=== PATIENT | male | born 1995 | race Hispanic/Latino ===

== ENCOUNTER 2018-04-19 17:59 | Emergency (ER) | payer OTHER ==
[~2018-04-19] VITALS: Ht 182.9 cm; Wt 89.1 kg
[2018-04-19] MEDS ORDERED: ACETAMINOPHEN 325 MG TAB As Ordered ONE (18:37)
[2018-04-19] MEDS ORDERED: ACETAMINOPHEN 325 MG TAB PO ONE (18:45)
[2018-04-19] MEDS ORDERED: NS 1,000 ML IV ONE (18:45)
[2018-04-19 18:57] LABS: HEMATOCRIT 44.9 % (42.0-52.0); HEMOGLOBIN 15.1 g/dl (13.5-17.5); MEAN CORPUSCULAR HEMOGLOBIN 29.2 pg (27.0-33.0); MEAN CORPUSCULAR HGB CONC 33.6 g/dl (32.0-36.5); MEAN CORPUSCULAR VOLUME 86.8 fl (80.0-96.0); PLATELET COUNT, AUTOMATED 196 10^3/uL (150-450); RED BLOOD COUNT 5.17 10^6/uL (4.30-6.10); WHITE BLOOD COUNT 10.4 10^3/uL (4.0-10.0)
[2018-04-19 19:15] LABS: BLOOD UREA NITROGEN 19 MG/DL (7-18); CALCIUM LEVEL 8.4 MG/DL (8.5-10.1); CARBON DIOXIDE LEVEL 27 MEQ/L (21-32); CHLORIDE LEVEL 105 MEQ/L (98-107); CREATININE FOR GFR 1.18 MG/DL (0.70-1.30); GLOMERULAR FILTRATION RATE > 60.0 (>60); GLUCOSE, FASTING 109 MG/DL (70-100); POTASSIUM SERUM 3.7 MEQ/L (3.5-5.1); SODIUM LEVEL 139 MEQ/L (136-145)
[2018-04-19 19:30] LABS: INFLUENZA A AMPLIFICATION NEGATIVE (NEGATIVE); INFLUENZA B AMPLIFICATION NEGATIVE (NEGATIVE)
--- NOTE | 2018-04-19 19:37 | REP ---
AP PORTABLE CHEST: 04/19/2018. Clinical history: Cough and fever. Comparison: No prior study. Findings: This AP portable chest shows the lungs well inflated. The left CP angle is excluded. The right CP angle is sharply defined. There is no dense consolidation with air bronchograms. Some streaky densities in the bases may reflect some bronchitis or reactive airway disease. The heart, mediastinal and hilar contours, aorta and airway intact. Impression: 1. Streaky densities that may reflect some underlying bronchitis, but no dense consolidation, pleural effusion, cardiomegaly, edema or other acute finding. Electronically Signed by Ricki Le MD 04/19/2018 09:32 P
--- NOTE | 2018-04-19 19:37 | REPVR ---
EXAM: US NON-VASCULAR JOINT OR OTHER EXTREMITY STRUCTURE LTD EXAM DATE/TIME: 04/19/2018 7:25 PM CLINICAL HISTORY: 23 years old, male; Pain; Shoulder; Left; Additional info: Left shoulder pain, swelling at vaccination site(r/o abscess TECHNIQUE: US NON-VASCULAR JOINT OR OTHER EXTREMITY STRUCTURE LTD COMPARISON: No relevant prior studies available. FINDINGS: The patient had a vaccination at the left shoulder. In the region of the vaccination there is massive subcutaneous edema and thickening of the skin. This appearance is consistent with inflammation or infection. However, no focal abscess could be identified. IMPRESSION: Severe swelling at the vaccination site, a result of diffuse inflammation or infection. However, no abscess seen. Electronically signed by: Cody Kidd On 04/19/2018 19:37:18 PM
[2018-04-19] MEDS ORDERED: NS 1,000 ML IV SCH (19:45)
[2018-04-19] MEDS ORDERED: IBUPROFEN 600 MG TAB PO ONE (19:45)
[2018-04-19] MEDS ORDERED: IBUPROFEN 600 MG TAB As Ordered ONE (19:46)
[2018-04-19] MEDS ORDERED: CEFD1CAP8 PO (20:43)
[2018-04-19] MEDS ORDERED: ALBU17IN2 INH (20:43)
[2018-04-19] MEDS ORDERED: PIPERACILLIN/TAZOBACTAM SOD 3.375 GM in D5W MINI-BAG PLUS 50 ML IV ONE (20:45)
[2018-04-19 22:12] VITALS: BP 134/64
== END 2018-04-19 22:13 | disposition home or self-care (01) ==
LOC: EDBD 17:59 → M ED 17:59
DX: J20.9 Acute bronchitis, unspecified (principal); T50.Z95A Adverse effect of other vaccines and biological substances, initial encounter; X58.XXXA Exposure to other specified factors, initial encounter; Y92.89 Other specified places as the place of occurrence of the external cause; Z91.013 Allergy to seafood
CPT/HCPCS: 71045; 76881; 80048; 81001; 83605; 85027; 87502; 96361; 96374; 99284; J2543

== ENCOUNTER → 2019-06-18 | Outpatient (CLI) | payer OTHER ==
[~2019-06-18] MED LIST: CEFD1CAP8 PO; PROV108A INH
[2019-06-18 13:56] LABS: C REACTIVE PROTEIN QUANTITATIV < 0.30 MG/DL (0.00-0.30); RHEUMATOID FACTOR QUANT < 10.0 IU/ML (<15.0)
== END ==
LOC: M PLALAB 11:50
PROVIDERS: ATTEND Physician Assistant
DX: M51.36 Other intervertebral disc degeneration, lumbar region (principal)

== ENCOUNTER → 2019-07-26 | Outpatient (CLI) | payer OTHER ==
--- NOTE | 2019-07-26 18:25 | REPPI ---
Clinical: Sacroiliac pain. Technique: Four views of the bilateral sacroiliac joints. Findings: Bilateral sacroiliac joints are symmetric and age appropriate. No degenerative or inflammatory changes are appreciated. No fracture or subluxation. Impression: Normal sacroiliac joint study. Electronically Signed by Anoop Sargent MD 07/26/2019 06:17 P
== END ==
LOC: M PLAIMG 12:27
PROVIDERS: ATTEND Internal Medicine
DX: M53.3 Sacrococcygeal disorders, not elsewhere classified (principal)

== ENCOUNTER → 2020-03-07 | Outpatient (CLI) | payer OTHER ==
--- NOTE | 2020-03-08 11:02 | REP ---
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 COMPARISON: None. TECHNIQUE: 3T multiplanar MRI imaging of the pelvis without contrast. FINDINGS: Visualized intrapelvic structures including visualized portions of the small and large bowel, prostate/seminal vesicles, and bladder are normal in appearance. No significant adenopathy or pelvic free fluid. No mass lesion identified. Subcutaneous tissues, musculature, and osseous structures/joint spaces are normal. IMPRESSION: Normal noncontrast MRI of the pelvis. <Electronically signed by Anoop Sargent > 03/08/20 [id number]
== END ==
LOC: M RAD 16:48
PROVIDERS: ATTEND Internal Medicine Cardiovascular Disease
DX: E27.5 Adrenomedullary hyperfunction (principal); I10 Essential (primary) hypertension

== ENCOUNTER → 2020-03-13 | Outpatient (CLI) | payer OTHER ==
--- NOTE | 2020-03-13 09:18 | REP ---
INDICATION: RESISTANT HTN ADRENAL MEDULLARY HYPERFUNCTION. COMPARISON: None. TECHNIQUE: Multiple sequences are obtained in the axial and coronal planes without the use of intravenous contrast. FINDINGS: The adrenal glands are normal in appearance. No adrenal mass or nodule is seen. The visualized liver, spleen, pancreas and kidneys are unremarkable with no abnormality detected. There is a 2 cm gallstone in the gallbladder without evidence of gallbladder wall edema. There is no evidence of intrahepatic or extrahepatic biliary dilatation. There is no adenopathy or free fluid in the visualized abdomen. IMPRESSION: Normal adrenal glands. There is a 2 cm gallstone in the gallbladder. <Electronically signed by Ralph Giang > 03/13/20 [id number]
== END ==
LOC: M RAD 06:29
PROVIDERS: ATTEND Internal Medicine Cardiovascular Disease
DX: E27.5 Adrenomedullary hyperfunction (principal); K80.20 Calculus of gallbladder without cholecystitis without obstruction